=== PATIENT | female | born 1990 | race Caucasian/White ===

== ENCOUNTER 2016-11-20 19:30 | Emergency (ER) | payer OTHER ==
[2016-11-20 19:53] VITALS: BP 129/77; PULSE 87; RESP 16; TEMP 98.8; O2SAT 96
--- NOTE | 2016-11-20 21:46 | UCPHY ---
H & P Patient Type: New Chief Complaint Nursing Narrative: C/o lower back pain x 1 month. Pt states pain worsened after diving into pool while working at [facility] today. Denies trauma/injury, numbness, tingling, weakness, loss of bowel/ bladder control. Time Seen by Provider: 11/20/16 21:38 HPI/ROS: CHIEF COMPLAINT: Low back pain HISTORY OF PRESENT ILLNESS: Patient is a 26-year-old female who comes to the Urgent Care complaining of low back pain. she states that she had mild low back pain bilaterally for about a month. She states that she does not lift properly and it does feel better when she lifts with a straight back. Today her symptoms worsened with a rescue at work. 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 Since then she has had an increase in her back pain. There is no bony tenderness or step- offs. No radiation. No weakness numbness or deficits. No bowel or bladder abnormalities ambulates normally. REVIEW OF SYSTEMS: Constitutional: denies: chills, fever, recent illness, recent injury EENTM: denies: blurred vision, double vision, nose congestion Respiratory: denies: cough, shortness of breath Cardiac: denies: chest pain, irregular heart rate, lightheadedness, palpitations Gastrointestinal/Abdominal: denies: abdominal pain, diarrhea, nausea, vomiting, blood streaked stools Genitourinary: denies: dysuria, frequency, hematuria, pain Musculoskeletal: denies: See HPI Skin: denies: lesions, rash, jaundice, bruising Neurological: denies: headache, numbness, paresthesia, tingling, dizziness, weakness Hematologic/Lymphatic: denies: blood clots, easy bleeding, easy bruising Immunologic/allergic: denies: HIV/AIDS, transplant EXAM: GENERAL: Well-appearing, well-nourished and in no acute distress. HEAD: Atraumatic, normocephalic. EYES: Pupils equal round and reactive to light, extraocular movements intact, sclera anicteric, conjunctiva are normal. ENT: TMs normal, nares patent, oropharynx clear without exudates. Moist mucous membranes. NECK: Normal range of motion, supple without lymphadenopathy or JVD. LUNGS: Breath sounds clear to auscultation bilaterally and equal. No wheezes rales or rhonchi. HEART: Regular rate and rhythm without murmurs, rubs or gallops. ABDOMEN: Soft, nontender, normoactive bowel sounds. No guarding, no rebound. No masses appreciated. BACK: Patient has bilateral paraspinous muscle back pain. Pain with bending or twisting. No pain with palpation. No radiation of pain. No CVA tenderness, no spinal tenderness, step-offs or deformities EXTREMITIES: Normal range of motion, no pitting or edema. No clubbing or cyanosis. NEUROLOGICAL: Cranial nerves II through XII grossly intact. Normal speech, normal gait. 5/5 strength, normal movement in all extremities, normal sensation PSYCH: Normal mood, normal affect. SKIN: Warm, dry, normal turgor, no visible rashes or lesions. Exam Limitations: No limitations - Personal History LMP (Females 10-55): 22-28 Days Ago Current Tetanus Diphtheria and Acellular Pertussis (TDAP): Yes Tetanus Vaccine Date: within 10 years - Medical/Surgical History Hx Asthma: No Hx Chronic Respiratory Disease: No Hx Diabetes: No Hx Cardiac Disease: No Hx Renal Disease: No Hx Cirrhosis: No Hx Alcoholism: No Hx HIV/AIDS: No Hx Splenectomy or Spleen Trauma: No Other PMH: Denies - Family History Significant Family History: No pertinent family hx - Social History Smoking Status: Never smoked Alcohol Use: Sober Drug Use: None Constitutional: Initial Vital Signs Temperature (C) 37.1 C 11/20/16 19:48 Heart Rate 87 11/20/16 19:48 Respiratory Rate 16 11/20/16 19:48 Blood Pressure 129/77 H 11/20/16 19:48 O2 Sat (%) 96 11/20/16 19:48 O2 Delivery Mode Room Air Allergies/Adverse Reactions: No Known Allergies Allergy (Verified 11/20/16 19:53) Home Medications: Medication Instructions Recorded NK [No Known Home Meds] 11/20/16 Medical Decision Making ED Course/Re-evaluation: The patient has musculoskeletal back pain. There is no indication for imaging. I encouraged ibuprofen and rest. She understands and agrees with this plan. I will give her a note for work. We discussed indications for follow-up. Differential Diagnosis: Partial list of the Differential diagnosis considered include but were not limited to; musculoskeletal back pain , sciatica, fracture and although unlikely based on the history and physical exam, I also considered pyelonephritis, kidney stone. I discussed these differential diagnoses and the plan with the patient as well as the usual and expected course. The patient understands that the diagnosis is provisional and that in medicine we are not always correct and that further workup is often warranted. Usual and customary warnings were given. All of the patient's questions were answered. The patient was instructed to return to the emergency department should the symptoms at all worsen or return, otherwise to followup with the physician as we discussed. Departure - Departure Disposition: Home, Routine, Self-Care Clinical Impression: Low back pain Qualifiers: Chronicity: unspecified Back pain laterality: bilateral Sciatica presence: without sciatica Qualified Code(s): M54.5 - Low back pain Condition: Good Instructions: Low Back Strain (ED) Referrals: VIKAS REID MD [Other] - As per Instructions Stand Alone Forms: Work Excuse - PQRS PQRS Measurement: Not applicable
== END 2016-11-20 21:52 | disposition home or self-care (01) ==
LOC: CED 19:30
DX: M54.5 Low back pain (principal)
CPT/HCPCS: G0463-PO